=== PATIENT | male | born 2000 | race Caucasian/White ===

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

== ENCOUNTER 2021-05-19 00:27 | Emergency (ER) | payer SELFPAY ==
[2021-05-19] MEDS ORDERED: Ondansetron 4 MG Tab.DIS PO ONE (01:16)
== END 2021-05-19 02:46 | disposition home or self-care (01) ==
LOC: JD.ED 00:27
DX: R10.84 Generalized abdominal pain (principal); R11.2 Nausea with vomiting, unspecified
CPT/HCPCS: 36415; 80053; 85025; 99284; A9270; 99283